=== PATIENT | female | born 1965 | race Hispanic/Latino ===

== ENCOUNTER 2021-04-18 10:27 | Emergency (ER) | payer OTHER ==
[~2021-04-18] VITALS: Ht 165.1 cm; Wt 104.3 kg
[2021-04-18] MEDS ORDERED: KETOROLAC TROMETHAMINE 30 MG/ML VIAL IM ONE (10:45)
[2021-04-18] MEDS ORDERED: GABAPENTIN 300 MG CAP PO SCH (10:45)
[2021-04-18 11:17] VITALS: BP 140/81
[2021-04-18] MEDS ORDERED: IBUPROFEN600 MG PO (14:16)
[2021-04-18] MEDS ORDERED: GABAPENTIN300 MG PO (14:16)
== END 2021-04-18 11:18 | disposition home or self-care (01) ==
LOC: ER 10:37
DX: M25.522 Pain in left elbow (principal); M54.12 Radiculopathy, cervical region; I10 Essential (primary) hypertension
CPT/HCPCS: 93005; 99283; J1885